=== PATIENT | female | born 1975 | race Caucasian/White ===

== ENCOUNTER 2017-03-11 10:53 | Emergency (ER) | payer BC ==
[~2017-03-11] VITALS: Ht 165.1 cm; Wt 63.5 kg
[2017-03-11 11:25] VITALS: BP 114/79
[2017-03-11] MEDS ORDERED: KETOROLAC TROMETH 60MG/2ML VIAL IM ONE (12:00)
== END 2017-03-11 12:16 | disposition home or self-care (01) ==
LOC: ER 10:53
DX: M50.30 Other cervical disc degeneration, unspecified cervical region (principal); M54.12 Radiculopathy, cervical region; M54.5 Low back pain; G89.29 Other chronic pain; M79.602 Pain in left arm
CPT/HCPCS: 72040; 93005; 96372; 99284; J1885

== ENCOUNTER 2022-03-25 11:56 | Emergency (ER) | payer BC ==
[~2022-03-25] VITALS: Ht 165.1 cm; Wt 70.0 kg
[2022-03-25] MEDS ORDERED: ASPirin 81 mg TAB PO ONE (12:15)
[2022-03-25] MEDS ORDERED: SODIUM CHLORIDE 0.9% 1,000 ML IV ONE (13:15)
[2022-03-25 13:16] LABS: Basophils # (auto) 0 10 ^3/uL (0-0.2); Basophils % (auto) 0.7 % (0.0-2.0); Eosinophils # (auto) 0.2 10 ^3/uL (0-0.8); Eosinophils % (auto) 3.7 % (0.0-7.0); Hematocrit 40.3 % (36.0-46.0); Hemoglobin 13.6 g/dL (12.2-16.2); Lymphocytes # (auto) 2.4 10 ^3/uL (0.4-5.4); Lymphocytes % (auto) 43.2 % (10.0-50.0); Mean Corpuscular Hgb Conc. 33.7 g/dL (32.0-36.0); Mean Corpuscular Volume 89.2 fL (80.0-100.0); Monocytes # (auto) 0.4 10 ^3/uL (0-1.3); Monocytes % (auto) 6.3 % (0.0-12.0); Neutrophils # (auto) 2.6 10 ^3/uL (1.6-8.6); Neutrophils % (auto) 46.1 % (37.0-80.0); Nucleated Red Blood Cells % 0.1 %; Red Blood Cells 4.52 10^6/uL (4.0-5.20); Red Cell Distribution Width 12.4 % (11.8-14.3); White Blood Cell 5.6 10^3/uL (4.4-10.8)
[2022-03-25 13:37] LABS: Albumin 3.9 g/dL (3.4-5.0); Potassium 4.1 mmol/L (3.5-5.1)
[2022-03-25 13:48] LABS: BUN/Creatinine Ratio 9.7; Bilirubin, Total 0.6 mg/dL (0.2-1.0); Total Protein 7.1 g/dL (6.4-8.2)
[2022-03-25 14:44] VITALS: BP 140/81
[2022-03-25] MEDS ORDERED: MECL1TAB42 PO (15:54)
== END 2022-03-25 16:02 | disposition home or self-care (01) ==
LOC: ER 12:03
DX: R07.89 Other chest pain (principal); R42 Dizziness and giddiness; E78.5 Hyperlipidemia, unspecified; Z90.89 Acquired absence of other organs
CPT/HCPCS: 36415; 70450; 71045; 80053; 84484; 85025; 85379; 93005; 96360; 96361; 99285; J7030

== ENCOUNTER 2023-04-20 07:01 | Emergency (ER) | payer BC ==
[~2023-04-20] VITALS: Ht 165.1 cm; Wt 70.0 kg
[~2023-04-20 07:01] MED LIST: MECL1TAB42 PO
[2023-04-20 07:23] VITALS: TEMP 98.5; O2SAT 97
[2023-04-20] MEDS ORDERED: ONDANSETRON ODT 4 MG TAB PO ONE (08:30)
[2023-04-20] MEDS ORDERED: HYDROmorphone HCL 2 MG/ML VL/or syr IM ONE ×2 (08:30→09:45)
[2023-04-20 10:54] VITALS: BP 126/62; PULSE 94; RESP 16
== END 2023-04-20 11:22 | disposition home or self-care (01) ==
LOC: ER 07:01
DX: M51.36 Other intervertebral disc degeneration, lumbar region (principal); M47.898 Other spondylosis, sacral and sacrococcygeal region
CPT/HCPCS: 72131; 96372; 99285; J1170; Q0162